=== PATIENT | female | born 1980 | race Caucasian/White ===

== ENCOUNTER 2016-12-01 18:26 | Emergency (ER) | payer BC, MEDICAID ==
[~2016-12-01] VITALS: Ht 167.6 cm; Wt 90.7 kg
[~2016-12-01 18:26] MED LIST: EXTR500C4 PO; LABE10TAB PO; MOTR200T44 PO; PRENTAB40 PO
[2016-12-01 19:33] LABS: EOS % 0.4 % (0.0-3.0); LARGE UNSTAINED CELL # 0.1 K/mm3 (0.0-0.4); LARGE UNSTAINED CELL % 0.9 % (0.0-4.0); LYMPH % 16.4 % (24.0-44.0); MEAN CORPUSCULAR HEMOGLOBIN 22.6 pg (27.0-33.0); MEAN CORPUSCULAR HGB CONC 29.6 g/dl (32.0-36.5); MEAN CORPUSCULAR VOLUME 76.2 fl (80.0-96.0); MONO # 0.3 K/mm3 (0.0-0.8); NEUTROPHILS # 4.3 K/mm3 (1.8-7.7); NEUTROPHILS % 77.3 % (36.0-66.0); PLATELET COUNT, AUTOMATED 166 k/mm3 (150-450); WHITE BLOOD COUNT 5.5 K/mm3 (4.0-10.0)
[2016-12-01 19:51] LABS: CONTROL LINE HCG INT CTR LINE PRESENT
[2016-12-01 19:55] LABS: ANION GAP 9 MEQ/L (8-16); BLOOD UREA NITROGEN 13 MG/DL (7-18); CALCIUM LEVEL 8.4 MG/DL (8.5-10.1); CARBON DIOXIDE LEVEL 30 MEQ/L (21-32); CHLORIDE LEVEL 104 MEQ/L (98-107); CREATININE FOR GFR 0.73 MG/DL (0.55-1.02); GLOMERULAR FILTRATION RATE > 60.0 (>60); GLUCOSE, FASTING 98 MG/DL (70-105); POTASSIUM SERUM 3.6 MEQ/L (3.5-5.1); SODIUM LEVEL 143 MEQ/L (136-145)
[2016-12-01 21:05] VITALS: BP 154/94
== END 2016-12-01 21:06 | disposition home or self-care (01) ==
LOC: M ED 19:39
DX: N93.9 Abnormal uterine and vaginal bleeding, unspecified (principal); E28.2 Polycystic ovarian syndrome; Z88.2 Allergy status to sulfonamides

== ENCOUNTER → 2016-12-17 | Outpatient (CLI) | payer BC ==
--- NOTE | 2016-12-18 03:54 | REP ---
Clinical: Menorrhagia . Technique: Transabdominal pelvic ultrasound followed by transvaginal examination for better evaluation of the endometrium and adnexa. Findings: Bladder is unremarkable and measures 5.3 x 4.4 x 3.6 cm . Heterogeneous anteverted uterus measures 11.0 x 6.1 x 8.5 cm . The endometrial complex measures 14.6 mm thickness. No discrete uterine or endometrial abnormalities are appreciated. Bilateral ovaries are normal in appearance. Right ovary measures 4.1 x 2.7 x 2.8 cm. Left ovary measures 2.9 x 2.8 x 2.0 cm. No pelvic fluid or adnexal mass lesion. Impression: 1. Limited evaluation due to body habitus and technical factors. 2. Heterogeneous mildly enlarged uterus and thickened endometrium. No discrete uterine or ovarian abnormalities are identified. Signed by Abimael Phelan MD 12/18/2016 03:46 A
== END ==
LOC: M WHC 10:56
PROVIDERS: ATTEND Nurse Practitioner Women's Health
DX: N92.0 Excessive and frequent menstruation with regular cycle (principal); N85.2 Hypertrophy of uterus

== ENCOUNTER → 2017-01-01 | Outpatient (REF) | payer BC | LOC: M SFHCWAGY 15:08 | PROVIDERS: ATTEND Nurse Practitioner Women's Health | DX: E28.2 Polycystic ovarian syndrome (principal); N92.1 Excessive and frequent menstruation with irregular cycle ==

== ENCOUNTER 2019-06-09 09:04 | Emergency (ER) | payer BC, MEDICAID ==
[~2019-06-09] VITALS: Ht 167.6 cm; Wt 125.0 kg
[2019-06-09 09:05] VITALS: BP 189/100
[2019-06-09] MEDS ORDERED: AUGM875T28 PO (09:23)
== END 2019-06-09 09:47 | disposition home or self-care (01) ==
LOC: M ED 09:04
DX: K04.7 Periapical abscess without sinus (principal); Z88.2 Allergy status to sulfonamides; Z79.3 Long term (current) use of hormonal contraceptives

== ENCOUNTER 2022-01-08 21:44 | Inpatient (IN) | payer BC, MEDICAID ==
[~2022-01-08] VITALS: Ht 167.6 cm; Wt 133.9 kg
[~2022-01-08 21:44] MED LIST changes: +AUGM875T28 PO; +LABE100T4 PO; -LABE10TAB PO
[2022-01-09 00:03] LABS: RSV AMPLIFICATION NEGATIVE (NEGATIVE)
[2022-01-09 00:13] LABS: HCG, SERUM QUALITATIVE NEGATIVE (NEGATIVE)
[2022-01-09 00:16] LABS: ALBUMIN 3.7 GM/DL (3.2-5.2); ALT/SGPT 23 U/L (12-78); BILIRUBIN,DIRECT 0.1 MG/DL (0.0-0.2); BILIRUBIN,TOTAL 0.3 MG/DL (0.2-1.0); BLOOD UREA NITROGEN 8 MG/DL (7-18); CALCIUM LEVEL 9.2 MG/DL (8.5-10.1); CARBON DIOXIDE LEVEL 32 MEQ/L (21-32); CHLORIDE LEVEL 104 MEQ/L (98-107); CREATININE FOR GFR 0.74 MG/DL (0.55-1.30); ETHYL ALCOHOL (ETHANOL) < 0.003 % (0.000-0.010); GLOMERULAR FILTRATION RATE > 60.0 (>58); GLUCOSE, FASTING 99 MG/DL (70-100); POTASSIUM SERUM 3.8 MEQ/L (3.5-5.1); SALICYLATE LEVEL < 1.7 MG/DL (5.0-30.0); SODIUM LEVEL 140 MEQ/L (136-145); TOTAL PROTEIN 6.6 GM/DL (6.4-8.2)
[2022-01-09 00:22] LABS: AMPHETAMINES LEVEL URINE NEGATIVE (NEGATIVE); BARBITURATES URINE NEGATIVE (NEGATIVE); BENZODIAZEPINES URINE NEGATIVE (NEGATIVE); CANNABINOIDS URINE POSITIVE (NEGATIVE); COCAINE METABOLITE URINE NEGATIVE (NEGATIVE); METHADONE URINE NEGATIVE (NEGATIVE); OPIATES URINE NEGATIVE (NEGATIVE); PHENCYCLIDINE URINE NEGATIVE (NEGATIVE)
[2022-01-09 00:27] LABS: HEMATOCRIT 45.6 % (36.0-47.0); HEMOGLOBIN 14.9 g/dl (12.0-15.5); MEAN CORPUSCULAR HEMOGLOBIN 29.6 pg (27.0-33.0); MEAN CORPUSCULAR HGB CONC 32.7 g/dl (32.0-36.5); MEAN CORPUSCULAR VOLUME 90.7 fl (80.0-96.0); PLATELET COUNT, AUTOMATED 157 10^3/uL (150-450); RED BLOOD COUNT 5.03 10^6/uL (4.00-5.40); WHITE BLOOD COUNT 7.4 10^3/uL (4.0-10.0)
[2022-01-09] MEDS ORDERED: BOOSTRIX/ADACEL VACCINE (DIPHTH/PERTUSS/ACELL/TETANUS) 0.5ML SYR IM ONE (01:30)
[2022-01-09] MEDS ORDERED: hydrOXYzine 50 MG TAB PO ONE (01:35)
[2022-01-09 01:39] LABS: ACETAMINOPHEN LEVEL < 2.0 UG/ML (10.0-30.0)
[2022-01-09] MEDS ORDERED: TRAZ-186 PO (06:24)
[2022-01-09] MEDS ORDERED: CLON-412 PO (06:24)
[2022-01-09] MEDS ORDERED: VENL75CA47 PO (06:24)
[2022-01-09] MEDS ORDERED: CELE20TA PO (06:24)
[2022-01-09] MEDS ORDERED: HOME MED LIST COMPLETE! XX SCH (06:25)
[2022-01-09] MEDS ORDERED: CitaloPRAM (CeleXA) 20 MG TAB PO SCH (09:00)
[2022-01-09] MEDS ORDERED: VENLAFAXINE **XR** 75MG CAPSULE PO SCH (09:00)
[2022-01-09] MEDS ORDERED: cloNIDine 0.1MG TABLET PO SCH (09:00)
[2022-01-09] MEDS ORDERED: IBUPROFEN 400MG TAB PO PRN (11:20)
[2022-01-09] MEDS ORDERED: traZODone 50 MG TAB PO PRN (11:20)
[2022-01-09] MEDS ORDERED: MAALOX 30 ML SUSP *UDC PO PRN (11:20)
[2022-01-09] MEDS ORDERED: MOM 30ML SUSPENSION UDC PO PRN (11:20)
[2022-01-09] MEDS: cloNIDine 0.1MG TABLET PO SCH ×2 (16:00→20:51)
[2022-01-09] MEDS: traZODone 50 MG TAB PO SCH (20:50)
[2022-01-09] MEDS ORDERED: traZODone 50 MG TAB PO SCH (21:00)
[2022-01-09 22:50] VITALS: BP 139/97
[2022-01-10] MEDS: diphenhydrAMINE 25MG CAP PO PRN ×2 (06:32→20:19)
[2022-01-10] MEDS: OLANZapine 5 MG TAB PO PRN ×2 (06:32→20:21)
[2022-01-10 07:02] VITALS: BP 166/94
[2022-01-10] MEDS: cloNIDine 0.1MG TABLET PO SCH ×3 (08:43→20:20)
[2022-01-10] MEDS: VENLAFAXINE **XR** 75MG CAPSULE PO SCH (08:43)
[2022-01-10 17:14] VITALS: BP_SYST 170; BP_DIAS 66; BP_DIAS 88
[2022-01-10] MEDS: busPIRone 5 MG TAB PO SCH (20:20)
[2022-01-10] MEDS: traZODone 50 MG TAB PO SCH (20:21)
[2022-01-11 07:13] VITALS: BP 166/78
[2022-01-11] MEDS: cloNIDine 0.1MG TABLET PO SCH ×3 (08:46→21:03)
[2022-01-11] MEDS: busPIRone 5 MG TAB PO SCH ×2 (08:46→21:03)
[2022-01-11] MEDS: VENLAFAXINE **XR** 75MG CAPSULE PO SCH (08:46)
[2022-01-11 09:57] VITALS: BP 166/94
[2022-01-11] MEDS ORDERED: diphenhydrAMINE 50MG CAP PO PRN (10:00)
[2022-01-11] MEDS: lisinopriL 5 MG TAB PO SCH (14:05)
[2022-01-11 17:50] VITALS: BP 171/94
[2022-01-11] MEDS: traZODone 50 MG TAB PO SCH (21:03)
[2022-01-12 06:18] VITALS: BP 138/82
[2022-01-12] MEDS: lisinopriL 5 MG TAB PO SCH (08:31)
[2022-01-12] MEDS: VENLAFAXINE **XR** 75MG CAPSULE PO SCH (08:31)
[2022-01-12] MEDS: busPIRone 5 MG TAB PO SCH ×2 (08:31→12:58)
[2022-01-12] MEDS: cloNIDine 0.1MG TABLET PO SCH ×3 (08:31→21:27)
[2022-01-12 08:32] LABS: CHOLESTEROL RISK RATIO 4.121 (<5)
[2022-01-12 18:37] VITALS: BP 144/92
[2022-01-12] MEDS: traZODone 100 MG TAB PO SCH (21:25)
[2022-01-13 06:33] VITALS: BP 152/86
[2022-01-13] MEDS: lisinopriL 5 MG TAB PO SCH (09:12)
[2022-01-13] MEDS: busPIRone 5 MG TAB PO SCH ×2 (09:13→12:58)
[2022-01-13] MEDS: cloNIDine 0.1MG TABLET PO SCH ×3 (09:13→21:23)
[2022-01-13] MEDS: VENLAFAXINE **XR** 75MG CAPSULE PO SCH (09:13)
[2022-01-13 18:50] VITALS: BP 159/97
[2022-01-13] MEDS: traZODone 100 MG TAB PO SCH (21:22)
[2022-01-14] MEDS: ACETAMINOPHEN TAB 650MG DOSE (2X325MG) PO PRN ×3 (06:01→21:51)
[2022-01-14 06:18] VITALS: BP 144/90
[2022-01-14] MEDS: busPIRone 5 MG TAB PO SCH ×2 (09:04→13:02)
[2022-01-14] MEDS: cloNIDine 0.1MG TABLET PO SCH ×3 (09:04→21:50)
[2022-01-14] MEDS: VENLAFAXINE **XR** 75MG CAPSULE PO SCH (09:04)
[2022-01-14] MEDS: lisinopriL 5 MG TAB PO SCH (09:04)
[2022-01-14 17:53] VITALS: BP 139/91
[2022-01-14] MEDS: traZODone 100 MG TAB PO SCH (21:49)
[2022-01-15 06:47] VITALS: BP 149/87
[2022-01-15] MEDS ORDERED: TRAZ-257 PO (08:48)
[2022-01-15] MEDS ORDERED: LISI5TAB11 PO (08:48)
[2022-01-15] MEDS ORDERED: BUSP5TA PO (08:48)
[2022-01-15] MEDS ORDERED: CLONI1TA PO (08:48)
[2022-01-15] MEDS ORDERED: VENL75CA47 PO (08:48)
[2022-01-15] MEDS ORDERED: ABIL1TAB11 PO (08:48)
[2022-01-15] MEDS: VENLAFAXINE **XR** 75MG CAPSULE PO SCH (09:02)
[2022-01-15] MEDS: busPIRone 5 MG TAB PO SCH ×2 (09:02→12:06)
[2022-01-15] MEDS: cloNIDine 0.1MG TABLET PO SCH (09:02)
[2022-01-15 09:03] VITALS: BP 149/87
[2022-01-15] MEDS: lisinopriL 5 MG TAB PO SCH (09:03)
== END 2022-01-15 12:50 | disposition home or self-care (01) | DRG 755 ==
LOC: M ED 21:44 → M ED INP 01-09 11:19 → M PSY 01-09 22:42
PROVIDERS: ADMIT Psychiatry & Neurology Psychiatry; ATTEND Psychiatry & Neurology Psychiatry
DX: F43.20 Adjustment disorder, unspecified (principal); F41.9 Anxiety disorder, unspecified; F32.A Depression, unspecified; R45.851 Suicidal ideations; Z91.52 Personal history of nonsuicidal self-harm; F43.10 Post-traumatic stress disorder, unspecified; Z20.822 Contact with and (suspected) exposure to COVID-19; Z79.899 Other long term (current) drug therapy; Z88.2 Allergy status to sulfonamides; E66.9 Obesity, unspecified; I10 Essential (primary) hypertension

== ENCOUNTER → 2022-11-22 | Outpatient (REF) | payer OTHER ==
[~2022-11-22] MED LIST changes: +ABIL1TAB11 PO; +BUSP5TA PO; +CELE20TA PO; +CLON-412 PO; +CLONI1TA PO; -LABE100T4 PO; +LABE100T6 PO; +LISI5TAB11 PO; +TRAZ-186 PO; +TRAZ-257 PO; +VENL75CA47 PO
[2022-11-22 14:14] LABS: BASO % 0.1 % (0.0-1.0); HEMATOCRIT 47.1 % (36.0-47.0); HEMOGLOBIN 15.5 g/dl (12.0-15.5); LYMPH # 1.1 10^3/uL (1.5-5.0); LYMPH % 14.8 % (24.0-44.0); MEAN CORPUSCULAR HGB CONC 32.9 g/dl (32.0-36.5); MEAN CORPUSCULAR VOLUME 88.2 fl (80.0-96.0); MONO # 0.5 10^3/uL (0.0-0.8); MONO % 7.2 % (2.0-8.0); NEUTROPHILS # 5.8 10^3/uL (1.5-8.5); NEUTROPHILS % 77.4 % (36.0-66.0); PLATELET COUNT, AUTOMATED 176 10^3/uL (150-450); RED BLOOD COUNT 5.34 10^6/uL (4.00-5.40); WHITE BLOOD COUNT 7.5 10^3/uL (4.0-10.0)
[2022-11-22 14:18] LABS: ALBUMIN 3.8 G/DL (3.2-5.2); ALKALINE PHOSPHATASE 144 U/L (46-116); ALT/SGPT 11 U/L (7.0-40); AST/SGOT 11 U/L (<34); BILIRUBIN,TOTAL 0.8 MG/DL (0.3-1.2); BLOOD UREA NITROGEN 10 MG/DL (9-23); CALCIUM LEVEL 8.9 MG/DL (8.5-10.1); CARBON DIOXIDE LEVEL 28 MMOL/L (20-31); CHLORIDE LEVEL 105 MMOL/L (98-107); CHOLESTEROL LEVEL 174 MG/DL (<200); CHOLESTEROL RISK RATIO 4.12 (<5); CREATININE FOR GFR 0.73 MG/DL (0.55-1.30); GLOMERULAR FILTRATION RATE > 60.0 (>58); GLUCOSE, FASTING 98 MG/DL (60-100); HDL CHOLESTEROL 42.2 MG/DL (>40); LDL CHOLESTEROL 115.8 MG/DL (<100); NON-HDL-C 131.8 MG/DL; POTASSIUM SERUM 3.9 MMOL/L (3.5-5.1); SODIUM LEVEL 140 MMOL/L (136-145); TOTAL PROTEIN 6.4 G/DL (5.7-8.2); TRIGLYCERIDES LEVEL 80 MG/DL (<150)
[2022-11-22 14:20] LABS: HEMOGLOBIN A1c 5.1 % (4.0-6.0)
[2022-11-22 14:22] LABS: THYROID STIMULATING HORMONE 1.857 uIU/ML (0.55-4.78)
[2022-11-22 14:23] LABS: TOTAL 25(OH) VITAMIN D 25.6 NG/ML (20.0-100.0)
[2022-11-22 14:25] LABS: FREE T4 1.19 NG/DL (0.89-1.76)
== END ==
LOC: M SFHCADAM 10:16
PROVIDERS: ATTEND Physician Assistant Medical
DX: Z00.00 Encounter for general adult medical examination without abnormal findings (principal); E66.01 Morbid (severe) obesity due to excess calories; I10 Essential (primary) hypertension; Z86.32 Personal history of gestational diabetes

== ENCOUNTER → 2022-12-12 | Outpatient (REF) | payer OTHER, MEDICAID | LOC: M SFHCWAGY 17:20 | PROVIDERS: ATTEND Nurse Practitioner Family | DX: Z12.4 Encounter for screening for malignant neoplasm of cervix (principal); N73.9 Female pelvic inflammatory disease, unspecified ==